=== PATIENT | female | born 1980 | race African-American/Black ===

== ENCOUNTER → 2021-01-26 | Outpatient (CLI) | payer OTHER | LOC: LAB 12:46 | PROVIDERS: ATTEND Specialist | DX: Z01.812 Encounter for preprocedural laboratory examination (principal); Z20.822 Contact with and (suspected) exposure to COVID-19 | CPT/HCPCS: U0003; U0005 ==

== ENCOUNTER → 2021-01-28 | Day surgery (SDC) | payer OTHER ==
[~2021-01-28] VITALS: Ht 170.2 cm; Wt 77.0 kg
[~2021-01-28] MED LIST: LIDOCAINE 1%/EPI 1:100,000 20 ML VIAL. INJ ONE
[2021-01-28 09:14] VITALS: BP 112/75
--- NOTE | 2021-01-28 09:17 | PREOP HP ---
DATE OF SERVICE: 01/28/2021 SURGEON: Kapil Morales MD HISTORY OF PRESENT ILLNESS: The patient is referred because of a painful mass of the left mid back. She has had this for some time, has noticed it and saw her primary care doctor, Dr. Jocelin Banks and she was referred to me to remove this mass. There have been no studies. The patient states that at times it does hurt, then she leans against it and it hurts. PAST MEDICAL HISTORY: Shows normal childhood diseases. She has no high blood pressure, cancer, TB or any disease to her knowledge. MEDICATIONS: Takes no medication other than Aleve for various minor pains generally. ALLERGIES: She has no allergies. PAST SURGICAL HISTORY: She has had no surgery for similar problems. REVIEW OF SYSTEMS: Negative except for the back pain, which she has over this mass of the left back. SOCIAL HISTORY: The patient does not drink, smoke or use illicit drugs and as stated before, has no allergies. PHYSICAL EXAMINATION: GENERAL: Shows an alert female, in no acute distress. HEAD, EYES, EARS, NOSE AND THROAT: Grossly normal without evidence of disease. CHEST: Clear bilaterally to auscultation. HEART: Had a rate of 70 beats per minute, was regular. No murmurs or friction rubs were noted. BREASTS: Not examined. ABDOMEN: Not examined. EXTREMITIES: Grossly normal. BACK: Examination of the back shows a 5-cm mass of the left mid back in line with the mid portion of the scapula at the tip of the scapula. The mass appears to be not extremely tender. There is no redness and she has no evidence of it being fixed. It appears to be movable. It is well circumscribed. It is easily seen and readily noted. IMPRESSION: Mass of the left back. PLAN: We plan to excise it under local anesthesia. She understands the procedure and wishes this to be done and we will proceed. CATALINA DR: Dasha TID: [id number]
--- NOTE | 2021-01-28 09:58 | PDOC ---
SURGICAL PROGRESS NOTE DATE: 01/28/21 TIME: 09:57 No change in dictated H&P. Vital Signs Vital Signs Date Time Temp Pulse Resp B/P (MAP) Pulse Ox O2 Delivery O2 Flow Rate FiO2 01/28/21 09:14 64 20 99 Justicifation of Admission Dx: Justifications for Admission: Justification of Admission Dx: Yes MAGO ROJAS MD Jan 28, 2021 09:58
--- NOTE | 2021-01-28 11:23 | PDOC ---
SURGICAL PROGRESS NOTE DATE: 01/28/21 TIME: 11:14 Op Note: Surgeon.............................................Andrew Pre op diag.........................................mass of left noe Post op diag.......................................mayte left back subfascial Anesthesia.........................................1% lidocaine with epi Procedure..........................................Excision 4cm subfascial mass left mid lateral back Drains...............................................none Bloos loss..........................................4cc Fluids...............................................none Condition..........................................satisfactory Vital Signs Vital Signs Date Time Temp Pulse Resp B/P (MAP) Pulse Ox O2 Delivery O2 Flow Rate FiO2 01/28/21 09:14 64 20 99 Justicifation of Admission Dx: Justifications for Admission: Justification of Admission Dx: Yes MAGO ROJAS MD Jan 28, 2021 11:23
--- NOTE | 2021-01-28 11:46 | DISCH ---
DISCHARGE INSTRUCTIONS Condition on Discharge Condition on Discharge: Stable Activity After Discharge Activity Instructions for Disc: Activity as tolerated Diet after Discharge Diet after Discharge: Regular Wound Incision Care Other wound/incision instructi: leave dressing in place Follow-Up Follow up with: call and make appt to see me in 10-12 days MAGO ROJAS MD Jan 28, 2021 11:46
--- NOTE | 2021-01-28 14:33 | OP ---
DATE OF SURGERY: 01/28/2021 SURGEON: Kapil Morales MD PREOPERATIVE DIAGNOSIS: Mass mid portion of the left lateral back. POSTOPERATIVE DIAGNOSIS: Mass subfascial mid lateral back. TECHNIQUE: Under local anesthesia using 1% lidocaine, the area had been prepped with Betadine solution and draped in the routine fashion. The mass was 4 cm in length and we made a transverse incision in an oblique fashion following the skin lines. The most medial area being cephalad. We did this with a 15 blade and made an incision about 5 cm in length. We carried this down through the skin and went into the subQ. The lesion, we thought was superficial appeared to be deep. It appears somewhat moveable, but actually we had to go down and sever the fascia to get the lesion out. We anesthetized this area and had anesthetized the fascia over the muscle with 1% lidocaine and epinephrine before incise them. We then made an opening there and using Metzenbaum scissors, slowly dissected and cut the mass, which appeared to be yellowish in color completely away from the surrounding tissues. Grossly, we got the whole entire lesion out. As stated before, it was over 4 cm in size. The resultant defect was inspected and cautery was used for hemostasis. We inspected the wound and irrigated it with saline and then approximated the deep tissue fascia and subQ with interrupted 3-0 and 4-0 Vicryl. The skin was closed with interrupted 5-0 nylon sutures. The procedure was now terminated as there was no bleeding. All was healed and all was satisfactory. She had a good cosmetic result at this point. A sterile Tegaderm dressing was applied and the procedure was terminated. The patient was given instructions to leave the dressing on as long as possible and if it stays on, I will take it off when I see her in the office. She will come back and see me in about 10 days. The blood loss was 5 mL. FLUIDS GIVEN: None. DRAINS: No drains were used. CONDITION: The condition of the patient was satisfactory as she was returned to the recovery room. CLIF DR: Dasha TID: [id number]
--- NOTE | 2021-01-30 17:09 | PATHOLOGY ---
[facility] Accession Number: [id number] . 01 Material submitted: . back - LEFT BACK MASS. Modifiers: left . 02 Diagnosis: Adipose tissue, left back mass excision: - Lipoma. (JPM:[facility]; 01/30/2021) P 01/30/2021 1227 Local . 02 Electronically signed: . Jaswant Dunbar MD, Pathologist NPI- [id number] . 01 Gross description: . Fixative: Formalin Labeled: Left back mass Specimen received: Left back mass Dimensions: 3.5 x 2.4 x 1.1 cm External surface: Light ayers-yellow and smooth Cut surface: Light ayers-yellow to dark ayers . Dry Heat Room Attendant sections are submitted in A1. ([facility]; 01/29/2021) [facility] 01/29/2021 1136 Local . 02 Pathologist provided ICD-10: D17.1 . 02 CPT . 889694 Specimen Comment: A courtesy copy of this report has been sent to [phone], [phone] Specimen Comment: [id number] Specimen Comment: Report sent to / DR COREY Specimen Comment: A duplicate report has been generated due to demographic updates. Performed at: 01 [facility] [address], [place], [place] [id number] MD Ezio Hylton MD Phone: [phone] Performed at: 02 [facility] [address], [place] [id number] MD Jaswant Dunbar MD Phone: [phone]
== END | disposition home or self-care (01) ==
LOC: SURG 08:50 → EDUNIT# 10:00
PROVIDERS: ATTEND Specialist
DX: R22.2 Localized swelling, mass and lump, trunk (principal); D17.1 Benign lipomatous neoplasm of skin and subcutaneous tissue of trunk; Z79.899 Other long term (current) drug therapy; Z98.890 Other specified postprocedural states
CPT/HCPCS: 21932; 88304; J3490